=== PATIENT | female | born 1960 | race Caucasian/White ===

== ENCOUNTER 2022-08-28 00:54 | Day surgery (SDC) | payer OTHER ==
[~2022-08-28 00:54] MED LIST: ALBU90OI61 INH; ASPI325 PO; ATOR20 PO; ATORVASTATIN CA10 MG PO; Aldactone25 MG PO; CARV3.125 PO; Furosemide40 MG PO; LEVOFLOXACIN750 MG PO; Ventolin/Prove6.7 GM; lisinopril 10 mg tab PO
== END 2022-08-28 23:00 | disposition home or self-care (01) ==
LOC: WOUND 00:54
DX: L08.9 Local infection of the skin and subcutaneous tissue, unspecified (principal); D70.9 Neutropenia, unspecified; L97.511 Non-pressure chronic ulcer of other part of right foot limited to breakdown of skin; I73.9 Peripheral vascular disease, unspecified
CPT/HCPCS: 11102; 88305; 88312; A9270

== ENCOUNTER 2022-09-11 02:07 | Day surgery (SDC) | payer OTHER | END 2022-09-11 23:25 | disposition home or self-care (01) | LOC: WOUND 02:07 | DX: L08.9 Local infection of the skin and subcutaneous tissue, unspecified (principal); L97.511 Non-pressure chronic ulcer of other part of right foot limited to breakdown of skin; I73.9 Peripheral vascular disease, unspecified | CPT/HCPCS: A9270; G0463 ==

== ENCOUNTER 2022-09-18 02:40 | Day surgery (SDC) | payer OTHER | END 2022-09-18 23:15 | disposition home or self-care (01) | LOC: WOUND 02:40 | DX: L97.512 Non-pressure chronic ulcer of other part of right foot with fat layer exposed (principal); I73.9 Peripheral vascular disease, unspecified; D70.9 Neutropenia, unspecified | CPT/HCPCS: A9270 ==

== ENCOUNTER 2022-09-25 00:19 | Day surgery (SDC) | payer OTHER | END 2022-09-25 22:49 | disposition home or self-care (01) | LOC: WOUND 00:19 | DX: L08.9 Local infection of the skin and subcutaneous tissue, unspecified (principal); I73.9 Peripheral vascular disease, unspecified | CPT/HCPCS: A9270 ==

== ENCOUNTER 2022-10-02 02:57 | Day surgery (SDC) | payer OTHER | END 2022-10-02 23:06 | disposition home or self-care (01) | LOC: WOUND 02:57 | DX: L08.9 Local infection of the skin and subcutaneous tissue, unspecified (principal); L97.511 Non-pressure chronic ulcer of other part of right foot limited to breakdown of skin; I73.9 Peripheral vascular disease, unspecified | CPT/HCPCS: A9270; G0463 ==

== ENCOUNTER 2022-10-09 01:38 | Day surgery (SDC) | payer OTHER | END 2022-10-09 23:37 | disposition home or self-care (01) | LOC: WOUND 01:38 | DX: L08.9 Local infection of the skin and subcutaneous tissue, unspecified (principal); L97.511 Non-pressure chronic ulcer of other part of right foot limited to breakdown of skin; I73.9 Peripheral vascular disease, unspecified | CPT/HCPCS: A9270; G0463 ==

== ENCOUNTER 2022-10-16 01:49 | Day surgery (SDC) | payer OTHER | END 2022-10-16 23:30 | disposition home or self-care (01) | LOC: WOUND 01:49 | DX: L97.511 Non-pressure chronic ulcer of other part of right foot limited to breakdown of skin (principal); I73.9 Peripheral vascular disease, unspecified | CPT/HCPCS: A9270; G0463 ==

== ENCOUNTER 2022-11-06 01:49 | Day surgery (SDC) | payer OTHER | END 2022-11-06 23:06 | disposition home or self-care (01) | LOC: WOUND 01:49 | DX: Z09 Encounter for follow-up examination after completed treatment for conditions other than malignant neoplasm (principal); I73.9 Peripheral vascular disease, unspecified | CPT/HCPCS: G0463 ==

== ENCOUNTER 2024-06-07 10:08 | Emergency (ER) | payer OTHER ==
[~2024-06-07] VITALS: Ht 165.1 cm; Wt 83.9 kg
[2024-06-07 10:27] VITALS: BP 150/75
== END 2024-06-07 10:30 | disposition home or self-care (01) ==
LOC: ER 10:08
DX: K59.00 Constipation, unspecified (principal); Z87.891 Personal history of nicotine dependence; Z79.82 Long term (current) use of aspirin; Z79.899 Other long term (current) drug therapy; Z88.8 Allergy status to other drugs, medicaments and biological substances; Z88.5 Allergy status to narcotic agent
CPT/HCPCS: 99282

== ENCOUNTER 2024-06-16 13:55 | Inpatient (IN) | payer OTHER ==
[~2024-06-16] VITALS: Ht 165.1 cm; Wt 68.7 kg
[2024-06-16 14:47] LABS: Hematocrit 32.9 % (33.0-51.0); Hemoglobin 10.7 g/dL (11.5-16.0); Mean Corpuscular HGB 28.1 pg (26.0-34.0); Mean Corpuscular HGB Conc 32.5 g/dL (31.5-36.5); Mean Corpuscular Volume 86 fL (80-100); Mean Platelet Volume 9.1 fL (9.1-12.4); Platelet Count 325 K/mm3 (150-400); RDW Coefficient Variation 13.7 % (11.7-14.2); RDW Standard Deviation 43.3 fL (35.1-46.3); Red Blood Cell Count 3.81 M/mm3 (3.80-5.20); White Blood Cell Count 1.07 K/mm3 (4.00-11.30)
[2024-06-16 15:08] LABS: Albumin, Blood 2.6 g/dL (3.4-5.0); Albumin/Globulin Ratio 0.5 (0.8-1.8); Bilirubin, Total 0.8 mg/dL (0.1-1.0); Creatinine, Blood 1.5 mg/dL (0.40-1.00); Globulin, Blood 5.4 g/dL (2.2-4.0); Potassium, Blood 4.9 mmol/L (3.5-5.5)
[2024-06-16 15:15] LABS: BAND PERCENT MAN 42 % (0-8); BASOPHILS ABSOLUTE MAN 0.02 K/mm3 (0.00-0.23); BASOPHILS PERCENT MAN 2 % (0-2); EOSINOPHILS PERCENT MAN 0 % (0-6); LYMPHOCYTES ABSOLUTE MAN 0.12 K/mm3 (0.84-5.20); LYMPHOCYTES PERCENT MAN 12 % (21-46); METAMYELOCYTE ABSOLUTE MAN 0.04 K/mm3 (0.00-0.00); METAMYELOCYTE PERCENT MAN 4 % (0-0); MONOCYTES ABSOLUTE MAN 0.17 K/mm3 (0.16-1.47); MONOCYTES PERCENT MAN 16 % (4-13); SEG NEUTROPHILS PERCENT MAN 24 % (41-73); TOTAL CELLS COUNTED 50
[2024-06-16 15:53] LABS: Source, Urine Clean Catch
[2024-06-16 16:03] LABS: Appearance, Urine Hazy (Clear); Blood, Urine 1+ (Neg); Color, Urine Yellow (P-Yellow); Glucose Qualitative, Urine Neg (Neg); Ketones, Urine 2+ (Neg); Leukocyte Esterase, Urine 1+ (Neg); Nitrite, Urine Neg (Neg); Protein, Urine 2+ (Neg); Urobilinogen, Urine 1+ (Normal)
[2024-06-16 16:09] LABS: Bilirubin, Urine 1+ (Neg)
[2024-06-16 16:15] LABS: Bacteria Mod /hpf; Red Blood Cells, Urine 0-2 /hpf (0-2); Squamous Epithelial Cells Few /hpf (Few); White Blood Cells, Urine 0-2 /hpf (0-5)
[2024-06-16] MEDS ORDERED: NS 1,000 ML IV SCH ×3 (17:50→22:00)
[2024-06-16] MEDS ORDERED: Morphine Sulfate 4 MG/1 ML Injection IV ONE (17:50)
[2024-06-16] MEDS ORDERED: LOSARTAN POTASS25 M2 PO (18:15)
[2024-06-16] MEDS ORDERED: METO50ER PO (18:15)
[2024-06-16] MEDS ORDERED: ATOR10 PO (18:16)
[2024-06-16] MEDS ORDERED: VITAMIN D325 MC3 PO (18:17)
[2024-06-16] MEDS ORDERED: ACIDOPHILUS1 EAC3 PO (18:17)
[2024-06-16] MEDS ORDERED: One Daily Wome0.4 MG PO (18:17)
[2024-06-16] MEDS ORDERED: Piperacillin/Tazobactam Sod 3.375 GM in NS 100 ML IV ONE (19:55)
[2024-06-16] MEDS ORDERED: FentaNYL Citrate 50 MCG/ML 2 ML Injection IV PRN (20:40)
[2024-06-16] MEDS ORDERED: Ondansetron HCl 2 MG / ML 2ML Vial IV PRN (20:55)
[2024-06-16] MEDS ORDERED: NS 1,000 ML IV ONE (21:00)
[2024-06-16] MEDS ORDERED: HYDROmorphone HCl/Pf 1MG SYR IV PRN (22:05)
[2024-06-16 23:22] LABS: Base Excess Venous -11.3 mmol/L; Bicarbonate Venous 16.2 mmol/L (24.0-30.0); PCO2 Venous 31.2 mmHg (38-42)
[2024-06-17] MEDS ORDERED: Piperacillin/Tazobactam Sod 4.5 GM in NS 100 ML IV SCH (02:00)
[2024-06-17 03:26] LABS: U Amphetamine Screen Not Detected; U Barbituate Screen Not Detected; U Benzodiazapine Screen Not Detected; U Buprenorphine Screen Not Detected; U Cannabinoids Screen DETECTED; U Cocaine Screen Not Detected; U Methadone Screen Not Detected; U Methamphetamine Screen Not Detected; U Opiates Screen DETECTED; U Oxycodone Screen Not Detected; U Phencyclidine Screen Not Detected
[2024-06-17 05:04] VITALS: BP 122/64
[2024-06-17 05:58] LABS: Hematocrit 27.7 % (33.0-51.0); Hemoglobin 8.3 g/dL (11.5-16.0); Mean Corpuscular HGB 26.8 pg (26.0-34.0); Mean Corpuscular Volume 89 fL (80-100); Mean Platelet Volume 8.7 fL (9.1-12.4); Platelet Count 260 K/mm3 (150-400); RDW Standard Deviation 45.5 fL (35.1-46.3)
[2024-06-17 06:06] LABS: White Blood Cell Count 0.85 K/mm3 (4.00-11.30)
[2024-06-17 06:11] LABS: International Normalized Ratio 1.17; Prothrombin Time Results 12.4 Sec (9.7-11.5)
[2024-06-17 06:31] LABS: Magnesium, Blood 2.6 mg/dL (1.6-2.4)
[2024-06-17 06:32] LABS: Albumin, Blood 1.9 g/dL (3.4-5.0); Albumin/Globulin Ratio 0.5 (0.8-1.8); Bilirubin, Total 0.7 mg/dL (0.1-1.0); Bun/Creatinine Ratio 30.1 (12.0-20.0); Calcium, Blood 7.5 mg/dL (8.5-10.1); Creatinine, Blood 1.53 mg/dL (0.40-1.00); Globulin, Blood 4.1 g/dL (2.2-4.0); Potassium, Blood 4.7 mmol/L (3.5-5.5)
--- NOTE | 2024-06-17 06:36 | NUR ---
SUMMARY- PT ARRIVED TO ROOM W/ SOME DISCOMFORT. PT TX PER MAR W/ RELIEF. PT REPORTS PASSING GAS AND STATES LAST BM WAS 2 DAYS AGO. PT HAS BEEN NPO SINCE AL. PT HAS BEEN RESTING COMFORTABLY. PT HAS BEEN UP TO VOID W/ OUT ISSUE. CALL LIGHT IN REACH.
[2024-06-17 06:49] LABS: BAND PERCENT MAN 16 % (0-8); BASOPHILS PERCENT MAN 0 % (0-2); EOSINOPHILS ABSOLUTE MAN 0.06 K/mm3 (0.00-0.68); EOSINOPHILS PERCENT MAN 8 % (0-6); LYMPHOCYTES ABSOLUTE MAN 0.23 K/mm3 (0.84-5.20); LYMPHOCYTES PERCENT MAN 28 % (21-46); MONOCYTES ABSOLUTE MAN 0.03 K/mm3 (0.16-1.47); MONOCYTES PERCENT MAN 4 % (4-13); NEUTROPHILS ABSOLUTE MAN 0.51 K/mm3 (1.96-9.15); SEG NEUTROPHILS PERCENT MAN 44 % (41-73); TOTAL CELLS COUNTED 25
[2024-06-17 07:51] VITALS: BP 144/58
--- NOTE | 2024-06-17 14:21 | NUR ---
SUMMARY IV ABX PER ORDERS. ADVANCED TO CLEAR LIQ DIET. INDEP IN RESTROOM. DILAUDID FOR PAIN CONTROL. PT REPORTS HAVING A LIQ BM THIS MORNING. CONSULT PLACED FOR DR. IBARRA FOR LEUKOPENIA. VSS. PT USES CALL LIGHT APPROPRIATELY.
[2024-06-17 15:56] VITALS: BP 116/53
--- NOTE | 2024-06-17 16:15 | NUR ---
ASSUMED CARE OF PATIENT. SCHEDULED ABX HUNG. PT MEDICATED PER EMAR FOR PAIN AND NAUSEA. ICE CHIPS GIVEN FOR COMFORT. WILL CONT TO MONITOR AND TREAT.
[2024-06-17 19:48] VITALS: BP 90/79
[2024-06-17 21:02] VITALS: BP 117/50
[2024-06-18 02:24] VITALS: BP 106/52
--- NOTE | 2024-06-18 04:14 | NUR ---
SHIFT SUMMARY NOC. PT TREATED FOR DIVERTIC WITH ABSCESS. PT MEDICATED FOR PAIN X2 WITH REPORTED RELIEF OF ABD PAIN. PT REPORTED MILD NAUSEA BUT IMPROVED WITHOUT MEDICATION. PT INDEPENDENT IN ROOM, CALLS APPROPRIATELY. PT HAD ONE EPISODE OF BP 90/79 AT START OF SHIFT. PT ASYMPTOMATIC AND DENIED DIZZINESS AND BP IMPROVED. PT RESTED WITH EYES CLOSED AND CALL LIGHT IN REACH.
[2024-06-18 04:58] LABS: Hematocrit 25.6 % (33.0-51.0); Hemoglobin 7.8 g/dL (11.5-16.0); Mean Corpuscular HGB Conc 30.5 g/dL (31.5-36.5); Mean Corpuscular Volume 89 fL (80-100); Mean Platelet Volume 8.7 fL (9.1-12.4); Platelet Count 247 K/mm3 (150-400); RDW Coefficient Variation 14.3 % (11.7-14.2); RDW Standard Deviation 46.2 fL (35.1-46.3); Red Blood Cell Count 2.89 M/mm3 (3.80-5.20)
[2024-06-18 05:02] LABS: White Blood Cell Count 0.88 K/mm3 (4.00-11.30)
[2024-06-18 05:22] LABS: BAND PERCENT MAN 20 % (0-8); BASOPHILS PERCENT MAN 0 % (0-2); EOSINOPHILS PERCENT MAN 0 % (0-6); LYMPHOCYTES PERCENT MAN 12 % (21-46); MONOCYTES ABSOLUTE MAN 0.21 K/mm3 (0.16-1.47); MONOCYTES PERCENT MAN 24 % (4-13); NEUTROPHILS ABSOLUTE MAN 0.56 K/mm3 (1.96-9.15); SEG NEUTROPHILS PERCENT MAN 44 % (41-73); TOTAL CELLS COUNTED 25
[2024-06-18 06:26] LABS: Bun/Creatinine Ratio 20.4 (12.0-20.0); Calcium, Blood 7.6 mg/dL (8.5-10.1); Creatinine, Blood 1.62 mg/dL (0.40-1.00); Potassium, Blood 4.4 mmol/L (3.5-5.5)
[2024-06-18 07:56] VITALS: BP 113/52
[2024-06-18] MEDS ORDERED: Piperacillin/Tazobactam Sod 4.5 GM in NS 100 ML IV SCH (08:00)
[2024-06-18 15:05] VITALS: BP 137/66
--- NOTE | 2024-06-18 16:34 | NUR ---
SHIFT SUMMARY PT HAS FELT MORE NAUSEATED TODAY THAN YESTERDAY. HAS HAD MINIMAL APPETITE FOR CLEAR LIQS. DILAUDID FOR PAIN CONTROL. INDEP IN ROOM AND HAS HAD A LIQUID AND A SOLID BM TODAY. IVF + ABX PER ORDERS. VSS. PT USES CALL LIGHT APPROPRIATELY.
[2024-06-18 19:10] VITALS: BP 111/49
[2024-06-19 04:14] VITALS: BP 113/55
[2024-06-19 04:42] LABS: Hematocrit 26.2 % (33.0-51.0); Mean Corpuscular HGB 27.3 pg (26.0-34.0); Mean Corpuscular HGB Conc 30.5 g/dL (31.5-36.5); Mean Corpuscular Volume 89 fL (80-100); Platelet Count 230 K/mm3 (150-400); RDW Coefficient Variation 14.5 % (11.7-14.2); RDW Standard Deviation 47.2 fL (35.1-46.3); Red Blood Cell Count 2.93 M/mm3 (3.80-5.20); White Blood Cell Count 3.33 K/mm3 (4.00-11.30)
[2024-06-19 04:59] LABS: Bun/Creatinine Ratio 15.3 (12.0-20.0); Calcium, Blood 7.3 mg/dL (8.5-10.1); Creatinine, Blood 1.57 mg/dL (0.40-1.00); Potassium, Blood 4.1 mmol/L (3.5-5.5)
[2024-06-19 05:26] LABS: BAND PERCENT MAN 23 % (0-8); BASOPHILS PERCENT MAN 0 % (0-2); EOSINOPHILS ABSOLUTE MAN 0.13 K/mm3 (0.00-0.68); EOSINOPHILS PERCENT MAN 4 % (0-6); LYMPHOCYTES ABSOLUTE MAN 0.16 K/mm3 (0.84-5.20); LYMPHOCYTES PERCENT MAN 5 % (21-46); METAMYELOCYTE ABSOLUTE MAN 0.13 K/mm3 (0.00-0.00); METAMYELOCYTE PERCENT MAN 4 % (0-0); MONOCYTES ABSOLUTE MAN 0.29 K/mm3 (0.16-1.47); MONOCYTES PERCENT MAN 9 % (4-13); NEUTROPHILS ABSOLUTE MAN 2.59 K/mm3 (1.96-9.15); SEG NEUTROPHILS PERCENT MAN 55 % (41-73); TOTAL CELLS COUNTED 100
--- NOTE | 2024-06-19 06:11 | NUR ---
SHIFT SUMMARY NOC. PT A/O X4. PT PAINFUL AND NAUSEOUS THIS SHIFT, PT WAS MEDICATED FOR SX WITH IV MEDS AND REPORTED RELIEF. PT INDEPENDENT IN THE ROOM, VOIDING URINE AND HAD A LIQUID BM THIS SHIFT. PT RESTED WITH EYES CLOSED AND CALL LIGHT IN REACH.
[2024-06-19 07:13] VITALS: BP 119/56
[2024-06-19] MEDS ORDERED: AMOCLA875 PO (11:43)
[2024-06-19] MEDS ORDERED: METO25ER PO (11:44)
[2024-06-19] MEDS ORDERED: NS 250 ML IV PRN (17:20)
--- NOTE | 2024-06-19 17:23 | NUR ---
PT REPORTED PERIODS OF ABD PAIN BUT REPORTS IS OVERALL FEELING BETTER THIS AFTERNOON THAN SHE WAS THIS MORNING UP IN ROOM INDEPENDENTLY, PAIN CONTROLLED WITH MEDS. [place] SMALL AMOUNTS OF FOOD AND FLUIDS
[2024-06-19 19:59] VITALS: BP 104/55
--- NOTE | 2024-06-19 22:32 | NUR ---
ASSUMPTION OF CARE RECEIVED REPORT FROM MARIA DE JESUS RYAN. PT ASLEEP IN BED, RESPIRATIONS EVEN/UNLABORED. PER REPORT - TOLERATING FULL LIQUID DIET. AMBULATES/TOILETS INDEPENDENTLY. CALL LIGHT IN REACH, BED IN LOWEST POSITION.
[2024-06-20 04:19] VITALS: BP 118/46
[2024-06-20 04:44] LABS: Hematocrit 29.5 % (33.0-51.0); Hemoglobin 8.8 g/dL (11.5-16.0); Mean Corpuscular HGB 27.1 pg (26.0-34.0); Mean Corpuscular HGB Conc 29.8 g/dL (31.5-36.5); Mean Corpuscular Volume 91 fL (80-100); Mean Platelet Volume 8.8 fL (9.1-12.4); Platelet Count 204 K/mm3 (150-400); RDW Coefficient Variation 14.6 % (11.7-14.2); RDW Standard Deviation 49.4 fL (35.1-46.3); Red Blood Cell Count 3.25 M/mm3 (3.80-5.20); White Blood Cell Count 3.79 K/mm3 (4.00-11.30)
[2024-06-20 05:11] LABS: Calcium, Blood 7.9 mg/dL (8.5-10.1); Creatinine, Blood 1.58 mg/dL (0.40-1.00); Potassium, Blood 4.2 mmol/L (3.5-5.5)
[2024-06-20 05:31] LABS: BAND PERCENT MAN 17 % (0-8); BASOPHILS ABSOLUTE MAN 0.03 K/mm3 (0.00-0.23); BASOPHILS PERCENT MAN 1 % (0-2); EOSINOPHILS ABSOLUTE MAN 0.07 K/mm3 (0.00-0.68); EOSINOPHILS PERCENT MAN 2 % (0-6); LYMPHOCYTES ABSOLUTE MAN 0.53 K/mm3 (0.84-5.20); LYMPHOCYTES PERCENT MAN 14 % (21-46); METAMYELOCYTE ABSOLUTE MAN 0.11 K/mm3 (0.00-0.00); METAMYELOCYTE PERCENT MAN 3 % (0-0); MONOCYTES ABSOLUTE MAN 0.18 K/mm3 (0.16-1.47); MONOCYTES PERCENT MAN 5 % (4-13); MYELOCYTE ABSOLUTE MAN 0.03 K/mm3 (0.00-0.00); MYELOCYTE PERCENT MAN 1 % (0-0); SEG NEUTROPHILS PERCENT MAN 57 % (41-73); TOTAL CELLS COUNTED 100
--- NOTE | 2024-06-20 06:38 | NUR ---
SHIFT SUMMARY S/P DIVERTIC ABSCESS. NO ACUTE CHANGES OVERNIGHT. VS. TOLERATING FULL LIQUID DIET. AMBULATING/VOIDING IND. PT REPORTS PAIN TOLERABLE, MEDICATED PER EMAR. ANTICIPATED D/C LATER TODAY. CALL LIGHT IN REACH, BED IN LOWEST POSITION, WILL REPORT TO DAY RN.
[2024-06-20 07:19] VITALS: BP 133/49
[2024-06-20] MEDS ORDERED: HYDROcodone 5-APAP 325 TAB PO PRN (07:55)
[2024-06-20] MEDS ORDERED: TraMADol HCl 50 MG Tab PO PRN (08:00)
[2024-06-20] MEDS ORDERED: ONDA4ODT PO (09:28)
[2024-06-20] MEDS ORDERED: TRAM50 PO (09:28)
--- NOTE | 2024-06-20 11:14 | NUR ---
PT REPORTED TO THIS RN THIS MORNING AT SHIFT CHANGE THAT SHE HAD A LOT OF GAS AND THEN HAD SOME BRIGHT RED BLOOD AT HER RECTUM WHEN SHE WIPED. DR. ROBERTS NOTIFIED , NO NEW ORDERS.
--- NOTE | 2024-06-20 11:16 | NUR ---
DISCHARGE: PT REPORTS READY TO GO HOME, DC OK WITH DR. ROBERTS. DC PACKET PRINTED AND PT EDUCATED, PT VERBALIZED UNDERSTANDING. SCRIPTS SENT TO HOME [facility] DR[facility]. IV DC'D WNL, TIP INTACT. PT LEFT UNIT AT 1100 VIA WHEELCHAIR WITH
== END 2024-06-20 10:50 | disposition home or self-care (01) | DRG 872 ==
LOC: ER 13:55 → ERHOLD 21:50 → SURS 21:50
PROVIDERS: Family Medicine; Nurse Practitioner Acute Care; Physician Assistant; ADMIT Internal Medicine
DX: A41.9 Sepsis, unspecified organism (principal); K57.20 Diverticulitis of large intestine with perforation and abscess without bleeding; I13.0 Hypertensive heart and chronic kidney disease with heart failure and stage 1 through stage 4 chronic kidney disease, or unspecified chronic kidney disease; N17.9 Acute kidney failure, unspecified; D70.8 Other neutropenia; I50.9 Heart failure, unspecified; D63.1 Anemia in chronic kidney disease; N18.30 Chronic kidney disease, stage 3 unspecified; E86.0 Dehydration; I95.9 Hypotension, unspecified; Z88.5 Allergy status to narcotic agent; Z88.8 Allergy status to other drugs, medicaments and biological substances; Z79.82 Long term (current) use of aspirin; Z87.891 Personal history of nicotine dependence
CPT/HCPCS: 36415; 74177; 80048; 80053; 81001; 82803; 83605; 83735; 85025; 85610; 87040; 87086; 96361; 96374-59; 99285-25; A9270; J1170; J2270; J2405; J2543; J3010; J7030; J7050; Q5110; Q9967

== ENCOUNTER 2024-08-21 06:44 | Day surgery (SDC) | payer OTHER ==
[~2024-08-21] VITALS: Ht 165.1 cm; Wt 60.7 kg
[~2024-08-21 06:44] MED LIST changes: +ACIDOPHILUS1 EAC3 PO; +AMOCLA875 PO; +ATOR10 PO; +LOSARTAN POTASS25 M2 PO; +METO25ER PO; +METO50ER PO; +ONDA4ODT PO; +One Daily Wome0.4 MG PO; +TRAM50 PO; +VITAMIN D325 MC3 PO
[2024-08-21] MEDS ORDERED: propofoL 50 ML IV ONE (07:25)
[2024-08-21] MEDS ORDERED: Lactated Ringer's 1,000 ML IV ONE ×2 (07:25→08:04)
[2024-08-21] MEDS ORDERED: FURO20 (07:28)
[2024-08-21] MEDS ORDERED: KLOR-CON 1010 ME6 (07:30)
[2024-08-21] MEDS ORDERED: Lidocaine HCl/Pf 1% 5 ML VIAL ONE (07:32)
[2024-08-21] MEDS ORDERED: [UNRECOGNIZED DRUG - OTHER] (07:33)
[2024-08-21] MEDS ORDERED: ATOR10 (07:33)
[2024-08-21] MEDS ORDERED: LOSARTAN POTASS25 MG (07:34)
[2024-08-21] MEDS ORDERED: Ondansetron HCl 2 MG / ML 2ML Vial ONE (08:19)
--- NOTE | 2024-08-21 08:32 | NUR ---
08/21/24 0832 Simona Layton COLONOSCOPY INCOMPLETE D/T DIVERTICULOSIS SCARING UNABLE TO COMPLETE, COMPLETED SIGMOID FLEX.
[2024-08-21 09:02] VITALS: BP 131/61
== END 2024-08-21 09:08 | disposition home or self-care (01) ==
LOC: ORSCSDS 06:44
PROVIDERS: Surgery
PROC: 0DJD8ZZ Inspection of Lower Intestinal Tract, Via Natural or Artificial Opening Endoscopic (ICD-10-PCS; principal; 2024-08-21 08:00)
DX: K57.80 Diverticulitis of intestine, part unspecified, with perforation and abscess without bleeding (principal); K56.699 Other intestinal obstruction unspecified as to partial versus complete obstruction; D72.819 Decreased white blood cell count, unspecified; I50.9 Heart failure, unspecified; E78.5 Hyperlipidemia, unspecified; E87.5 Hyperkalemia; Z87.891 Personal history of nicotine dependence; Z79.899 Other long term (current) drug therapy
CPT/HCPCS: J2001; J2405; J2704; J7120

== ENCOUNTER → 2024-12-22 | Outpatient (CLI) | payer OTHER ==
[~2024-12-22] MED LIST changes: +ATOR10; +FURO20; +KLOR-CON 1010 ME6; +LOSARTAN POTASS25 MG; +[UNRECOGNIZED DRUG - OTHER]
[2024-12-22 12:26] LABS: Protein, Urine Quantitative 6.2 mg/dL (0.0-11.9)
[2024-12-22 12:30] LABS: Microalbumin, Urine Quant. <5.000 mg/L (0.000-20.000)
== END | disposition home or self-care (01) ==
LOC: LAB SHORT 09:47
PROVIDERS: Internal Medicine Nephrology
DX: N18.5 Chronic kidney disease, stage 5 (principal); D75.1 Secondary polycythemia; N25.81 Secondary hyperparathyroidism of renal origin; E55.9 Vitamin D deficiency, unspecified; E78.00 Pure hypercholesterolemia, unspecified; R76.9 Abnormal immunological finding in serum, unspecified; R94.5 Abnormal results of liver function studies; R94.6 Abnormal results of thyroid function studies
CPT/HCPCS: 81050; 82043; 82570; 84156

== ENCOUNTER → 2025-01-27 | Outpatient (CLI) | payer OTHER | LOC: LAB SHORT 18:28 → LAB 18:28 | DX: D72.820 Lymphocytosis (symptomatic) (principal) | CPT/HCPCS: 88271; 88275 ==

== ENCOUNTER → 2025-05-27 | Outpatient (CLI) | payer MEDICARE, OTHER ==
[2025-05-27 14:51] LABS: Ferritin, Serum 134.0 ng/mL (8-252); Total Iron Binding Capacity 290.0 ug/dL (250-450)
[2025-05-31 11:07] LABS: ALPHA 1 GLOBULIN 0.36 g/dL (0.19-0.46); ALPHA 2 GLOBULIN 0.87 g/dL (0.48-1.05); BETA GLOBULIN 0.92 g/dL (0.48-1.10); GAMMA 1.09 g/dL (0.62-1.51); IMMUNOFIXATION IFE Done; KAPPA QNT FREE LIGHT CHAINS 59.70 mg/L (3.30-19.40); KAPPA/LAMBDA FLC RATIO 0.71 (0.26-1.65); LAMBDA QNT FREE LIGHT CHAINS 84.40 mg/L (5.71-26.30); TOTAL PROTEIN, SERUM 7.1 g/dL (6.3-8.2)
== END ==
LOC: LAB 12:55 → LAB SHORT 12:55
PROVIDERS: Internal Medicine Hematology & Oncology
DX: D70.9 Neutropenia, unspecified (principal)
CPT/HCPCS: 82728; 82784; 83521; 83540; 83550; 84155; 84165; 86334